=== PATIENT | female | born 1940 | race Caucasian/White ===

== ENCOUNTER → 2020-11-30 | Outpatient (CLI) | payer MEDICARE ==
[2020-11-30 18:12] LABS: C REACTIVE PROTEIN QUANTITATIV < 0.30 MG/DL (0.00-0.30); RHEUMATOID FACTOR QUANT < 10.0 IU/ML (<15.0)
== END ==
LOC: M PLALAB 14:42
PROVIDERS: ATTEND Internal Medicine Pulmonary Disease
DX: J84.9 Interstitial pulmonary disease, unspecified (principal)

== ENCOUNTER → 2021-01-21 | Outpatient (CLI) | payer MEDICARE ==
--- NOTE | 2021-01-26 09:23 | SLEEPCENT ---
DIAGNOSTIC NOCTURNAL POLYSOMNOGRAPHY DATE: 01/21/2021 ORDERED BY: Nina Castillo MD Nocturnal polysomnography was performed for evaluation of sleep physiology. 7 hours and 59 minutes of data were reviewed. There were 304.5 minutes of sleep identified. Sleep latency was normal at 20 minutes. REM latency was delayed at 236 minutes. Sleep architecture showed initial poor progression. Some fragmentation was seen. There was only one REM cycle. Overall sleep efficiency was 64.4%. The electrocardiogram showed a sinus rhythm with an average heart rate of 60 beats per minute; rate range 54 to 76. EEG showed normal waveforms for wake and sleep. There were only six respiratory events identified of 10 seconds in duration or greater for an apnea-hypopnea index within normal limits at 1.2. The events that were seen were hypopneic for the most part and not exclusive to sleep stage nor body posture. There was some snoring noted and arousals from respiratory events in total occurred 2.8 times per hour. There were no significant oxygen desaturations below 90%. There was, however, some significant activity in the limb leads. Limb movement arousal index was borderline at 7.1. IMPRESSION: 1. Periodic limb movement disorder (G47.61), borderline frequency of 7.1 per hour. 2. Snoring. RECOMMENDATION: The frequency of limb activity on the nocturnal polysomnography was greater than that which was associated with arousal. Nonetheless, interventions to reduce the frequency of arousal from limb activity may have a favorable effect on sleep continuity.
== END ==
LOC: M SLEEP 20:00
PROVIDERS: ATTEND Internal Medicine Pulmonary Disease
DX: G47.61 Periodic limb movement disorder (principal); R06.83 Snoring